=== PATIENT | male | born 1945 | race Caucasian/White ===

== ENCOUNTER 2020-09-13 09:37 | Observation (INO) | payer MEDICARE, OTHER ==
[~2020-09-13] VITALS: Ht 177.8 cm; Wt 128.0 kg
--- NOTE | 2020-09-13 09:45 | PHYS DOC ---
Adult General HPI HPI Patient is a 75-year-old male presenting for hypotension. He is here visiting from [facility] for the last 3 days he has had generalized weakness and fatigue with episodes of lightheadedness, dizziness and at times slurred speech. He reports he just "has not felt". [facility] he has good care in [place] with primary care physician and was recently treated for a complicated UTI with doxycycline but this did not fully resolve his symptoms and so, he was switched to ciprofloxacin 4 days ago. He has been compliant with all medications. He has been afebrile, no recent sick contacts but admits symptoms visiting family in the local area, he has had waxing and waning Review of Systems Review of Systems Fourteen body systems of review of systems have been reviewed. See HPI for per tinent positives and negative responses, other espitia all other systems are negative, non-pertinent or non-contributory Physical Exam Physical Exam Constitutional: Well developed, well nourished, no acute distress, non-toxic appearance. HENT: Normocephalic, atraumatic, bilateral external ears normal, oropharynx moist, no oral exudates, nose normal. Eyes: PERRLA, EOMI, conjunctiva normal, no discharge. Neck: Normal range of motion, no tenderness, supple, no stridor. Cardiovascular: Heart rate regular, sinus rhythm, no murmurs rubs or gallops Lungs & Thorax: Bilateral breath sounds clear to auscultation Abdomen: Bowel sounds normal, soft, no tenderness, no masses, no pulsatile masses. Nonsurgical abdomen, no peritoneal signs Skin: Warm, dry, no erythema, no rash. Back: No tenderness, no CVA tenderness. Extremities: No tenderness, no cyanosis, no clubbing, ROM intact, no edema. Neurologic: Alert and oriented X 3, grossly normal motor & sensory function, no focal deficits noted. Psychologic: Affect normal, judgement normal, mood normal. Current Patient Data Vital Signs Vital Signs Date Time Temp Pulse Resp B/P (MAP) Pulse Ox O2 Delivery O2 Flow Rate FiO2 09/13/20 09:37 98.1 71 18 86/47 (60) 96 Room Air Vital Signs Date Time Temp Pulse Resp B/P (MAP) Pulse Ox O2 Delivery O2 Flow Rate FiO2 09/14/20 10:35 98.5 90 16 135/77 (96) 96 Room Air Lab Results Current Medications Medications (Trade) Dose Ordered Sig/German Route PRN Reason Start Time Stop Time Status Last Admin Dose Admin Sodium Chloride 1,000 ml @ 1,000 mls/hr 1X ONCE IV 09/13/20 10:00 09/13/20 10:59 DC 09/13/20 10:02 Sodium Chloride 1,000 ml @ 1,000 mls/hr 1X ONCE IV 09/13/20 10:15 09/13/20 11:14 DC 09/13/20 11:03 Sodium Chloride 1,000 ml @ 1,000 mls/hr 1X ONCE IV 09/13/20 10:45 09/13/20 11:44 DC Ceftriaxone Sodium 1 gm/ Sodium Chloride 50 ml @ 100 mls/hr 1X ONCE IV 09/13/20 11:15 09/13/20 11:44 DC Acetaminophen (Tylenol) 650 mg PRN Q4HRS PRN PO FEVER > 100.3'F 09/13/20 11:15 09/14/20 11:14 DC Sodium Chloride 50 ml @ As Directed STK-MED ONCE .ROUTE 09/13/20 11:45 09/13/20 11:46 DC Ceftriaxone Sodium (Rocephin) 1 gm STK-MED ONCE .ROUTE 09/13/20 11:45 09/13/20 11:46 DC Atorvastatin Calcium (Lipitor) 10 mg DAILY PO 09/14/20 09:00 09/13/20 19:49 DC Ciprofloxacin (Cipro) 250 mg BID PO 09/13/20 21:00 09/14/20 12:01 DC 09/14/20 08:13 Potassium Chloride (Klor-Con) 10 meq DAILY PO 09/14/20 09:00 09/13/20 19:49 DC Tamsulosin HCl (Flomax) 0.4 mg DAILY PO 09/14/20 09:00 09/14/20 12:01 DC 09/14/20 08:13 Tizanidine HCl (Zanaflex) 4 mg BID PO 09/13/20 21:00 09/13/20 17:41 DC Zolpidem Tartrate (Ambien) 5 mg PRN QHS PRN PO INSOMNIA 09/13/20 16:15 09/14/20 12:01 DC 09/13/20 20:24 Losartan Potassium (Cozaar) 50 mg DAILY PO 09/14/20 09:00 09/14/20 12:01 DC 09/14/20 08:14 Magnesium Oxide (Magnesium Oxide) 400 mg DAILY PO 09/14/20 09:00 09/13/20 19:49 DC Cyanocobalamin (Vitamin B-12) 1,000 mcg DAILY PO 09/14/20 09:00 09/14/20 12:01 DC 09/14/20 08:13 Montelukast Sodium (Singulair) 10 mg QHS PO 09/13/20 21:00 09/14/20 12:01 DC 09/13/20 20:23 Atorvastatin Calcium (Lipitor) 10 mg HS PO 09/13/20 21:00 09/14/20 12:01 DC 09/13/20 20:24 Magnesium Oxide (Magnesium Oxide) 400 mg HS PO 09/13/20 21:00 09/14/20 12:01 DC 09/13/20 20:24 Potassium Chloride (Klor-Con) 10 meq HS PO 09/13/20 21:00 09/14/20 12:01 DC 09/13/20 20:23 Lactobacillus Rhamnosus (Culturelle) 1 cap BID PO 09/14/20 21:00 09/14/20 12:01 DC EKG EKG EKG ordered and interpreted by myself at 0950 hrs. as sinus rhythm at 69 bpm, prolonged MS interval at 218 otherwise unremarkable intervals, left axis deviation, no acute ischemic findings, no STEMI Radiology/Procedures Radiology/Procedures CT HEAD WITHOUT CONTRAST Clinical indication: Hypotension. Comparison: None. Technique: Axial images are obtained of the head from the skull base through the vertex without IV contrast. Findings: No mass-effect, midline shift, extra-axial fluid collection, hemorrhage, or obvious acute infarction is identified. Basilar cisterns are patent. The ventricles and sulci are prominent, consistent with age-related cerebral atrophy. There is periventricular white matter hypoattenuation. This is a nonspecific finding but is commonly due to chronic small vessel ischemic disease. Bone windows demonstrate no acute calvarial abnormality. The visualized paranasal sinuses are clear. Mastoid air cells are well aerated. IMPRESSION: 1. No acute intracranial abnormality. 2. Age-related cerebral atrophy and periventricular white matter changes probably due to chronic small vessel ischemic disease. Electronically signed by: Panchito Mooney MD (09/13/2020 10:38 AM) [id number] /////////////// XR CHEST 1V Clinical Indication: Reason: hypotension / Spl. Instructions: / History: Comparison: None. Findings: The cardiomediastinal silhouette is normal. Lungs are clear. There is no pneumothorax. No pleural effusion is appreciated. No acute bone abnormality. There is left shoulder arthroplasty, partially seen. IMPRESSION: No acute cardiopulmonary process. Electronically signed by: Panchito Mooney MD (09/13/2020 10:39 AM) [id number] Heart Score C/O Chest Pain: No HEART Score for Chest Pain: HEART Score for Chest Pain Response (Comments) Value History Slighlty/Non-Suspicious 0 ECG Normal 0 Age > 65 2 Risk Factors >3 Risk Factors or Hx CAD 2 Troponin < Normal Limit 0 Total 4 Risk Factors: Risk Factors: DM, Current or recent (<one month) smoker, HTN, HLP, family history of CAD, obesity. Risk Scores: Risk Factors: DM, Current or recent (<one month) smoker, HTN, HLP, family history of CAD, obesity. Course & Med Decision Making Course & Med Decision Making Patient hypotensive otherwise hemodynamically stable. HPI and physical exam nonconcerning for emergent or surgical findings ER work-up obtained and grossly nonconcerning. Patient currently being treated with ciprofloxacin in outpatient setting for complicated UTI. 2 L IV normal saline administered without improvement in hypotension and subsequent symptoms. I discussed with patient my fear of worsening UTI infection versus other pathology causing his refractory hypotension. I discussed despite IV fluid rehydration persistent hypotensive readings and symptoms of fatigue/dizziness and recommended admission I contacted hospitalist and discussed case, patient accepted for admission to [facility] with recommendation to start IV Rocephin IV Rocephin attempted to be started in ER setting but patient deferred, states it is not his UTI. He is otherwise agreeable to hospital admission for continued inpatient medical management Dragon Disclaimer Dragon Disclaimer This electronic medical record was generated, in whole or in part, using a voice recognition dictation system. Departure Departure: Impression: Primary Impression: Complicated UTI (urinary tract infection) Additional Impression: Hypotension Disposition: ADMITTED INPATIENT Admitting Physician: Felipe Jiang Condition: STABLE Referrals: PCP,NO (PCP) Problem Qualifiers ADELA KNAPP DO September 13, 2020 09:45
[2020-09-13] MEDS ORDERED: IV NORMAL SALINE 1,000ML 1,000 ML IV ONE ×3 (10:00→10:45)
[2020-09-13 10:26] LABS: CALCIUM 8.5 mg/dL (8.5-10.1); CREATININE 1.1 mg/dL (0.7-1.3); GFR 65.1; POTASSIUM 4.6 mmol/L (3.5-5.1)
[2020-09-13 10:27] LABS: BASO % 0 % (0-3); EOS # 0.3 x10^3/uL (0.0-0.7); EOS % 5 % (0-3); HEMOGLOBIN 10.6 g/dL (13.0-17.5); LYMPH # 1.7 x10^3/uL (1.0-4.8); LYMPH % 29 % (24-48); MEAN CORPUSCULAR HEMOGLOBIN 30 pg (25-35); MEAN CORPUSCULAR HGB CONC 33 g/dL (31-37); MEAN CORPUSCULAR VOLUME 92 fL (79-100); MONO # 0.5 x10^3/uL (0.0-1.1); MONO % 8 % (0-9); NEUT # 3.5 x10^3uL (1.8-7.7); NEUT % 58 % (31-73); PLATELET COUNT 226 x10^3/uL (140-400)
[2020-09-13 10:32] LABS: ALBUMIN 3.3 g/dL (3.4-5.0); TOTAL BILIRUBIN 0.4 mg/dL (0.2-1.0); TOTAL PROTEIN 6.6 g/dL (6.4-8.2)
--- NOTE | 2020-09-13 10:41 | RAD ---
PQRS Compliance Statement: One or more of the following individualized dose reduction techniques were utilized for this examinat ion: 1. Automated exposure control 2. Adjustment of the mA and/or kV according to patient size 3. Use of iterative reconstruction technique CT HEAD WITHOUT CONTRAST Clinical indication: Hypotension. Comparison: None. Technique: Axial images are obtained of the head from the skull base through the vertex without IV co ntrast. Findings: No mass-effect, midline shift, extra-axial fluid collection, hemorrhage, or obvious acute infarction is identified. Basilar cisterns are patent. The ventricles and sulci are prominent, consistent with age-related cerebral atrophy. There is perive ntricular white matter hypoattenuation. This is a nonspecific finding but is commonly due to chronic small vessel ischemic disease. Bone windows demonstrate no acute calvarial abnormality. The visualized paranasal sinuses are clear. Mastoid air cells are well aerated. IMPRESSION: 1. No acute intracranial abnormality. 2. Age-related cerebral atrophy and periventricular white matter changes probably due to chronic sma ll vessel ischemic disease. Electronically signed by: Panchito Mooney MD (09/13/2020 10:38 AM) [id number]
--- NOTE | 2020-09-13 10:42 | RAD ---
XR CHEST 1V Clinical Indication: Reason: hypotension / Spl. Instructions: / History: Comparison: None. Findings: The cardiomediastinal silhouette is normal. Lungs are clear. There is no pneumothorax. No pleural eff usion is appreciated. No acute bone abnormality. There is left shoulder arthroplasty, partially seen. IMPRESSION: No acute cardiopulmonary process. Electronically signed by: Panchito Mooney MD (09/13/2020 10:39 AM) [id number]
[2020-09-13] MEDS ORDERED: ACETAMINOPHEN 325 MG TABLET PO PRN (11:15)
[2020-09-13] MEDS ORDERED: cefTRIAXone SODIUM 1 GM VIAL ONE (11:45)
[2020-09-13] MEDS ORDERED: IV NORMAL SALINE 50ML 50 ML ONE (11:45)
[2020-09-13 12:22] VITALS: BP 119/73
--- NOTE | 2020-09-13 13:10 | EKG ---
[address] [address] Test Date: 2020-09-13 Test Time: 09:47:47 Pat Name: DAYRON CRUM Department: Room: Gender: M Pattern Checker: : 1945 Requested By: ADELA KNAPP Order Number: [id number] Reading MD: Measurements Intervals Finley Rate: 69 P: 26 DC: 218 QRS: -24 QRSD: 96 T: 8 QT: 394 QTc: 424 Interpretive Statements SINUS RHYTHM LEFTWARD AXIS OTHERWISE NORMAL ECG RI6.02 No previous ECG available for comparison
[2020-09-13] MEDS ORDERED: TIZA4TAB8 PO (13:53)
[2020-09-13] MEDS ORDERED: LOSA100T14 PO (13:53)
[2020-09-13] MEDS ORDERED: MAGN400C PO (14:01)
[2020-09-13] MEDS ORDERED: ATOR10TA60 PO (14:01)
[2020-09-13] MEDS ORDERED: MONT4GRA2 PO (14:01)
[2020-09-13] MEDS ORDERED: TAMS0.4C97 PO (14:01)
[2020-09-13] MEDS ORDERED: MECO10005 PO (14:01)
[2020-09-13] MEDS ORDERED: POTA10TA12 PO (14:01)
[2020-09-13] MEDS ORDERED: CIPR250T30 PO (14:02)
[2020-09-13] MEDS ORDERED: ZOLP5TAB PO (15:19)
[2020-09-13 15:55] VITALS: BP 153/89
[2020-09-13] MEDS ORDERED: ZOLPIDEM 5 MG TABLET. PO PRN (16:15)
[2020-09-13 19:37] VITALS: BP 169/93
[2020-09-13] MEDS: CIPROFLOXACIN HCL 250 MG TABLET PO SCH (20:24)
[2020-09-13] MEDS ORDERED: MONTELUKAST 10 MG TABLET. PO SCH (21:00)
[2020-09-13] MEDS ORDERED: tiZANidine 4 MG TABLET. PO SCH (21:00)
[2020-09-13] MEDS ORDERED: ATORVASTATIN CALCIUM 10 MG TABLET. PO SCH (21:00)
[2020-09-13] MEDS ORDERED: POTASSIUM CHLORIDE 10 MEQ TABLET.ER. PO SCH (21:00)
[2020-09-13] MEDS ORDERED: MAGNESIUM OXIDE 400 MG TABLET PO SCH (21:00)
--- NOTE | 2020-09-13 21:27 | HP ---
ADMIT DATE: 09/13/2020 HISTORY OF PRESENT ILLNESS: The patient is a 75-year-old male patient who presented to the Emergency Room with complaint of lightheadedness, dizziness at a time, slurring of speech. He reports that he just not felt well. When he arrived to Emergency Room, he was found to have to be hypertensive. According to him, he has had good care in [place] with primary care physician, was recently treated for complicated UTI with doxycycline but did not fully resolved symptoms so he was switched to ciprofloxacin 4 days ago. He has been compliant with all his medication. He has been afebrile. No recent sick contact but admits symptoms ____ tremor in the local area. He has had waxing and waning. He was extensively investigated in the Emergency Room. His EKG showed that he was in sinus rhythm at 69 beasts per minute, prolonged MD interval at 218 milliseconds, however, all other interval unremarkable. No acute ischemic findings. No STEMI. CT scan of the head without contrast showed that there was no mass effect, midline shift, extraaxial fluid collection, hemorrhage or obvious acute infarction with identified basilar cisterns are patent. The ventricles and sulci are prominent consistent with age related cerebral atrophy. There is periventricular white matter hypoattenuation. There is nonspecific finding commonly due to chronic small basal ischemic disease. Bone window demonstrates no acute calvarial abnormalities. The visualized paranasal sinuses are clear. Mastoid air cells are well aerated. His chest x-ray showed the cardiomediastinal silhouette is normal. Lungs are clear. There is no pneumothorax. No pleural effusion. No acute bony abnormality. He has left shoulder arthroplasty partially seen. He had lab work which was basically unremarkable and his white cell cont is only 6000. He has normochromic normocytic anemia with normal white cell count and platelet. The patient was admitted for hypertension and complicated UTI. PAST MEDICAL HISTORY: Significant for hypertension, hyperlipidemia, generalized osteoarthritis. He apparently has phimosis which he underwent dorsal slit only last week. He has also problem with urinary incontinence and benign prostatic hypertrophy. 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 He underwent cystoscopy, recently dorsal slit and has had multiple colonoscopy before. On his last colonoscopy, he was found to have polyp which was removed. ALLERGIES: HE IS ALLERGIC TO SULFA DRUGS. MEDICATIONS: He is currently on following medications; he is on ciprofloxacin 250 mg twice a day, tamsulosin 0.4 mg at bedtime, he is on tizanidine 4 mg twice a day, atorvastatin calcium 10 mg at bedtime, losartan potassium 100 mg once a day, Ambien 5 mg at bedtime, potassium chloride 10 mEq once a day, montelukast, Singulair 10 mg at bedtime, magnesium oxide 400 mg daily and Mecobalamin 1000 mcg tablet chewable once a day. FAMILY HISTORY: One sister at age of 52 because of breast cancer, his father of age of 82 because of motor vehicle accident and stroke, mother age of 69 because of congestive heart failure and cancer. SOCIAL HISTORY: He is , has a son and a daughter. He quite smoking in 1995 . He drinks alcohol occasionally. Does not use any illicit drugs. He is retired from the [employer] and [employer]. He uses a cane. REVIEW OF SYSTEM: The patient denies any blurring of vision but has bilateral cataract extractions. Denied any glaucoma or macular degeneration. He has bilateral hearing aids. Denied any nosebleed, stuffy nose or postnasal drip. Denied any sore throat, sore tongue, toothache, hoarseness of voice or difficulty swallowing. He denied any nausea, vomiting, diarrhea or constipation. Denied any hematemesis, melena or hematochezia. Denied any dysuria, frequency or hematuria for the time being. Denied any chest pain, shortness of breath, orthopnea, paroxysmal nocturnal dyspnea. Denied any cough, phlegm or hemoptysis. Did complain of dizziness and lightheadedness, however, has no syncopal episode, no fall or loss of consciousness or seizure activity. PHYSICAL EXAMINATION: GENERAL: On arrival to the Emergency Room, he looks well and was clearly in no apparent respiratory distress. No lymphadenopathy, no thyromegaly. No jugular venous distention, no lower limb edema. VITAL SIGNS: His heart rate was 71, blood pressure was 86/47, temperature was 98.1, respiratory rate was 18 and oxygen saturation was 96%. HEAD, EYES, EARS, NOSE AND THROAT: Showed normocephalic, atraumatic. NECK: Supple. HEART: Showed normal first and second heart sounds. No gallop or murmur. CHEST: Clear to auscultation. No crepitation or rhonchi. ABDOMEN: Distended, soft, nontender. NEUROLOGIC: He was awake, alert, responding appropriately. Cranial nerves intact. He moves extremities without difficulty. LABORATORY DATA: His lab work on arrival showed white cell count of 6000, hemoglobin 10.6, hematocrit 32, MCV 92, and platelet count 126,000. His chemistry showed a serum sodium 142, potassium 4.6, chloride 107, bicarbonate 26, anion gap of 9, BUN 23, creatinine 1.1, estimated GFR was 65 mL per minute. His glucose 177, calcium was 8.5. Total bilirubin, AST, ALT, alkaline phosphatase were normal. Total troponin 6.6, albumin 3.3. His chest x-ray showed cardiomediastinal silhouette is normal. Lungs are clear. No pneumothorax. No pleural effusion. No bony abnormalities. He has left shoulder arthroplasty partially seen. CT scan of the head without contrast showed no mass effect, midline shift, extraaxial fluid collection, hemorrhage or obvious acute infarction identified, basilar cisterns are patent. The ventricles and sulci are prominent consistent with age related cerebral atrophy. There is periventricular white matter hypoattenuation, this is nonspecific findings but is commonly found due to chronic small basal ischemic disease. The bone window demonstrates no acute calvarial abnormality. The visualized ____ sinuses are clear. Mastoid air cells are well aerated. The patient has received a liter of normal saline, was admitted for observation. We will reconcile all his medications and repeat all his labs again. We did actually orthostatics after the admission and showed no evidence of postural hypertension and if he remains stable, has no further episode of dizziness, lightheadedness tomorrow, he can be discharged home. CONSTANTINE/ALEX/RASHIDA DR: Carlos TID: [id number]
[2020-09-13 23:14] VITALS: BP 153/88
[2020-09-14 05:21] VITALS: BP 123/57
[2020-09-14 06:26] LABS: BASO % 1 % (0-3); EOS # 0.3 x10^3/uL (0.0-0.7); EOS % 6 % (0-3); HEMOGLOBIN 10.8 g/dL (13.0-17.5); LYMPH # 1.6 x10^3/uL (1.0-4.8); LYMPH % 28 % (24-48); MEAN CORPUSCULAR HEMOGLOBIN 30 pg (25-35); MEAN CORPUSCULAR HGB CONC 33 g/dL (31-37); MEAN CORPUSCULAR VOLUME 92 fL (79-100); MONO # 0.5 x10^3/uL (0.0-1.1); MONO % 9 % (0-9); NEUT # 3.2 x10^3uL (1.8-7.7); NEUT % 57 % (31-73); PLATELET COUNT 238 x10^3/uL (140-400); RED CELL DISTRIBUTION WIDTH 13.8 % (11.5-14.5); WHITE BLOOD COUNT 5.7 x10^3/uL (4.0-11.0)
[2020-09-14] MEDS: CIPROFLOXACIN HCL 250 MG TABLET PO SCH (08:13)
[2020-09-14] MEDS ORDERED: MAGNESIUM OXIDE 400 MG TABLET PO SCH (09:00)
[2020-09-14] MEDS ORDERED: TAMSULOSIN 0.4 MG CAP.ER.24H. PO SCH (09:00)
[2020-09-14] MEDS ORDERED: CYANOCOBALAMIN (VITAMIN B-12) 1,000 MCG TABLET. PO SCH (09:00)
[2020-09-14] MEDS ORDERED: POTASSIUM CHLORIDE 10 MEQ TABLET.ER. PO SCH (09:00)
[2020-09-14] MEDS ORDERED: ATORVASTATIN CALCIUM 10 MG TABLET. PO SCH (09:00)
[2020-09-14] MEDS ORDERED: LOSARTAN 50 MG TABLET. PO SCH (09:00)
[2020-09-14 10:35] VITALS: BP 135/77
[2020-09-14 13:28] LABS: ALBUMIN 3.6 g/dL (3.4-5.0); CALCIUM 8.8 mg/dL (8.5-10.1); CREATININE 0.9 mg/dL (0.7-1.3); POTASSIUM 4.5 mmol/L (3.5-5.1); TOTAL BILIRUBIN 0.3 mg/dL (0.2-1.0); TOTAL PROTEIN 7.1 g/dL (6.4-8.2)
[2020-09-14] MEDS ORDERED: LACTOBACILLUS RHAMNOSUS GG 1 CAPSULE. PO SCH (21:00)
== END 2020-09-14 12:01 | disposition home or self-care (01) ==
LOC: ER 09:37 → INTOOBSV 11:58 → 1 SOUTH 11:58
PROVIDERS: ADMIT Internal Medicine; ATTEND Internal Medicine
DX: I95.9 Hypotension, unspecified (principal); N39.0 Urinary tract infection, site not specified; I10 Essential (primary) hypertension; E78.5 Hyperlipidemia, unspecified; M15.9 Polyosteoarthritis, unspecified; N40.1 Benign prostatic hyperplasia with lower urinary tract symptoms; R32 Unspecified urinary incontinence; D64.9 Anemia, unspecified; Z87.891 Personal history of nicotine dependence; Z96.612 Presence of left artificial shoulder joint; Z96.643 Presence of artificial hip joint, bilateral; Z96.653 Presence of artificial knee joint, bilateral; Z97.4 Presence of external hearing-aid; Z98.41 Cataract extraction status, right eye; Z98.42 Cataract extraction status, left eye
CPT/HCPCS: 36415; 70450; 71045; 80053; 82947; 83605; 84484; 85025; 87040; 93005; 96360; 96361; 99285; G0378; J7030; G0379